=== PATIENT | male | born 1955 | race Caucasian/White ===

== ENCOUNTER 2019-04-30 15:39 | Inpatient (IN) | payer OTHER ==
[~2019-04-30] VITALS: Ht 177.8 cm; Wt 72.6 kg
[2019-04-30 15:40] VITALS: BP 106/49
[2019-04-30] MEDS ORDERED: WARF2TAB79 PO (16:09)
[2019-04-30] MEDS ORDERED: GABA100C PO (16:09)
[2019-04-30] MEDS ORDERED: METO25TE2 PO (16:09)
[2019-04-30] MEDS ORDERED: LACT1CAP63 PO (16:09)
[2019-04-30] MEDS ORDERED: VALS320T2 PO (16:09)
[2019-04-30] MEDS ORDERED: DOCU-299 PO (16:09)
[2019-04-30] MEDS ORDERED: ACET-2619 PO (16:09)
[2019-04-30] MEDS ORDERED: AMIO100T3 PO (16:09)
[2019-04-30] MEDS ORDERED: MIRT15TA PO (16:09)
[2019-04-30] MEDS ORDERED: PRED5TAB7 PO (16:09)
[2019-04-30] MEDS ORDERED: ALPR0.5T2 PO (16:09)
[2019-04-30] MEDS ORDERED: OLAN2.5T1 PO (16:09)
--- NOTE | 2019-04-30 16:30 | NUR ---
63 y/o m biba c/o cold-like symptoms x10 days. Pt has productive cough, with yellow, green, pink-tinged sputum. Pt denies pain. Pain level 0/10. Pt c/o chest discomfort upon inhalation. Pt A&O x4. Respirations are even and unlabored. Pt has colostomy bag in place. Pt has left sided weakness from a stroke in September 2018. Waiting for ERMD to evaluate pt. Allergies: nka Med hx: LA, Stroke, Diverticulitis, 4 stents, open heart surgery, aortic dissection
--- NOTE | 2019-04-30 17:00 | NUR ---
Spoke to of pt. 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
--- NOTE | 2019-04-30 17:25 | NUR ---
XRAY AT PT BEDSIDE
[2019-04-30 17:50] LABS: BASOPHILS % (AUTO) 0.4 % (0.0-2.0); EOSINOPHILS # (AUTO) 0.1 K/uL (0-0.4); HEMATOCRIT 39.1 % (36-52); HEMOGLOBIN 12.8 g/dL (12.0-18.0); LYMPHOCYTES # (AUTO) 0.7 K/uL (2.0-11.5); LYMPHOCYTES % (AUTO) 6.6 % (20.5-51.1); MEAN CORPUSCULAR HEMOGLOBIN 31 pg (27-31); MEAN CORPUSCULAR HGB CONC 33 g/dL (33-37); MONOCYTES # (AUTO) 0.6 K/uL (0.8-1.0); NEUTROPHILS # (AUTO) 8.6 K/uL (1.8-7.7); PLATELET COUNT (AUTO) 221 K/uL (140-450); RED BLOOD CELL COUNT(AUTO) 4.16 MIL/uL (4.20-6.10); RED CELL DISTRIBUTION WIDTH 15.2 % (11.6-13.7); WHITE BLOOD COUNT (AUTO) 10.1 K/uL (4.8-10.8)
--- NOTE | 2019-04-30 17:51 | NUR ---
Urinal provided at bedside
--- NOTE | 2019-04-30 18:29 | NUR ---
Contact Information: Alia Kyle ()
[2019-04-30 18:30] LABS: ALBUMIN 3.6 g/dL (3.4-5.0); ANION GAP 14.3 (8-16); CREATININE 2.2 mg/dL (0.7-1.3); POTASSIUM 4.3 mmol/L (3.5-5.1); TOTAL BILIRUBIN 0.4 mg/dL (0.0-1.0)
--- NOTE | 2019-04-30 18:52 | NUR ---
Pt requested to sit in a chair. Assisted pt to pivot to chair at bedside.
[2019-04-30] MEDS ORDERED: HYDROcodone/APAP 7.5/325 MG 1 TAB PO PRN (19:10)
[2019-04-30] MEDS ORDERED: ONDANSETRON 4 MG/2 ML VIAL IVP PRN (19:10)
[2019-04-30] MEDS ORDERED: ACETAMINOPHEN 325 MG TAB PO PRN (19:10)
--- NOTE | 2019-04-30 19:12 | NUR ---
Transfer of care and report given to AVA Barba
--- NOTE | 2019-04-30 19:13 | NUR ---
REPORT RECEIVED FROM AVA SAINI. TRANSFER OF CARE AT THIS TIME.
--- NOTE | 2019-04-30 19:15 | NUR ---
PT SITTING IN CHAIR NEAR BED. AWAKE, A/O X 4. TALKATIVE. NO COMPLAINTS AT THIS TIME.
--- NOTE | 2019-04-30 19:55 | NUR ---
Patient will be admitted to care of Dr Savage. Admited to TELE. Will go to room 107A. Belongings list completed. Report to AVA Zhao.
--- NOTE | 2019-04-30 19:55 | NUR ---
RECEIVED BEDSIDE REPORT FROM ED RN FOR PT'S CONT. OF CARE. PT IS AAOX4, ON SOFTWARE ENGINEER WEB APPLICATIONS, ON ROOM AIR, AMBULATES WITH ASSIST, ACTIVITY WITH ASSIST, HAS LEFT SIDED UPPER AND LOWER EXT WEAKNESS, HAS RIGHT AC 20G SALINE LOCK, HAS LEFT SIDE COLOSTOMY BAG, DENIES ANY PAIN AT THIS TIME. PT REQUESTED AND PROVIDED SNACK. EXPLAINED TO PT THE TAX STAFF ACCOUNTANT ROUTINE, PT VERBALIZED UNDERSTANDING. SAFETY MEASURES IN PLACE, AND CALL LIGHT IS WITHIN REACH. WILL MONITOR PT THROUGHOUT SHIFT.
[2019-04-30 20:16] LABS: PROTHROMBIN TIME 10.3 secs (10.8-13.4)
[2019-04-30 20:55] LABS: MAGNESIUM 2.2 mg/dL (1.8-2.4); PHOSPHORUS 4.3 mg/dL (2.5-4.9); THYROID STIMULATING HORMONE 1.08 uIU/mL (0.34-3.74)
[2019-04-30] MEDS: GABAPENTIN 100 MG CAP PO SCH (22:42)
[2019-04-30] MEDS: AMIODARONE 200 MG TAB PO SCH (22:42)
[2019-04-30] MEDS: DOCUSATE SODIUM 100 MG GELCAP PO SCH (22:42)
[2019-04-30] MEDS: OLANZapine 5 MG TAB PO SCH (22:42)
--- NOTE | 2019-04-30 22:42 | NUR ---
ADMINISTERED SCHEDULED MEDICATIONS ORDERED. PT TOLERATED THEM WELL. PT TEACHING GIVEN REGARDING MEDICATIONS AND SE, PT VERBALIZED FAMILIAR WITH MEDS SINCE THEY'RE HOME MEDS. INFORMED PT URINE SAMPLE NEEDED. PT UNDERSTOOD, STATED MIGHT NOT HAVE URINE UNTIL NEXT MORNING. WILL CONT. TO MONITOR PT.
[2019-04-30] MEDS: MIRTAZAPINE 15 MG TAB PO SCH (22:43)
[2019-04-30] MEDS: NACL 0.9% 1,000 ML IV SCH (22:44)
[2019-04-30] MEDS: ALPRAZolam 0.5 MG TAB PO SCH (22:45)
[2019-04-30] MEDS ORDERED: PIPERACILLIN/TAZOBACTAM 2.25 GM VIAL IV ONE (23:13)
[2019-04-30] MEDS ORDERED: CRUSHER, PILL MC ONE (23:13)
[2019-04-30] MEDS: PIPERACILLIN/TAZOBACTAM 2.25 GM in DEXTROSE 5% 50 ML IV SCH (23:33)
--- NOTE | 2019-04-30 23:33 | NUR ---
ADMINISTERED SCHEDULED IV ABX ORDERED. VS CHECKED AND CHARTED. PT DENIES ANY PAIN. WILL CONT TO MONITOR.
[2019-05-01] VITALS: BP 115/55
--- NOTE | 2019-05-01 02:00 | NUR ---
PT LYING DOWN ASLEEP WITH NO SIGNS OF DISTRESS. WILL CONT TO MONITOR PT.
[2019-05-01 04:00] VITALS: BP 106/48
--- NOTE | 2019-05-01 04:15 | NUR ---
PT LYING DOWN ASLEEP WITH NO SIGNS OF DISTRESS. WILL CONTINUE TO MONITOR PT.
[2019-05-01] MEDS ORDERED: PIPERACILLIN/TAZOBACTAM 2.25 GM VIAL IV ONE (05:06)
[2019-05-01] MEDS: PIPERACILLIN/TAZOBACTAM 2.25 GM in DEXTROSE 5% 50 ML IV SCH ×3 (05:13→17:56)
--- NOTE | 2019-05-01 05:19 | NUR ---
ADMINISTERED SCHEDULED IV ABX ORDERED. VS CHECKED AND CHARTED. PT DENIES ANY PAIN AT THIS TIME.
--- NOTE | 2019-05-01 06:47 | NUR ---
PT LYING DOWN ASLEEP, WITH NO SIGNS OF DISTRESS. WILL ENDORSE PT TO AM SHIFT RN FOR PT'S CONTINUITY OF CARE.
[2019-05-01 06:54] LABS: BASOPHILS # (AUTO) 0.1 K/uL (0.00-0.22); BASOPHILS % (AUTO) 0.8 % (0.0-2.0); EOSINOPHILS # (AUTO) 0.2 K/uL (0-0.4); EOSINOPHILS % (AUTO) 2.8 % (0.0-4.0); HEMATOCRIT 33.4 % (36-52); LYMPHOCYTES # (AUTO) 0.8 K/uL (2.0-11.5); LYMPHOCYTES % (AUTO) 9.6 % (20.5-51.1); MEAN CORPUSCULAR HEMOGLOBIN 31 pg (27-31); MEAN CORPUSCULAR HGB CONC 33 g/dL (33-37); MEAN CORPUSCULAR VOLUME 93.7 fL (80-94); MONOCYTES # (AUTO) 0.7 K/uL (0.8-1.0); MONOCYTES % (AUTO) 8.3 % (1.7-9.3); NEUTROPHILS # (AUTO) 6.7 K/uL (1.8-7.7); NEUTROPHILS % (AUTO) 78.5 % (42.2-75.2); PLATELET COUNT (AUTO) 184 K/uL (140-450); RED BLOOD CELL COUNT(AUTO) 3.57 MIL/uL (4.20-6.10); RED CELL DISTRIBUTION WIDTH 14.7 % (11.6-13.7); WHITE BLOOD COUNT (AUTO) 8.5 K/uL (4.8-10.8)
--- NOTE | 2019-05-01 07:15 | NUR ---
RECEIVED PATIENT FROM BROADCAST FIELD SUPERVISOR NURSE. PATIENT IS SLEEPING AT THIS TIME. NO SIGNS OF DISTRESS NOTED. VISIBLE CHEST RISE NOTED. RESPIRATIONS EVEN AND UNLABORED, ROOM AIR. BREATH SOUNDS CLEAR. ON TELE MONITORING. SKIN INTACT, WARM AND DRY. IV ON RIGHT AC GAUGE 20 RUNNING NS AT 50 ML/HR. PATIENT HAS COLOSTOMY IN PLACE. SMALL AMOUNT OF LIQUID STOOL PRESENT. BED IN LOW POSITION. CALL LIGHT IS WITHIN REACH. WILL CONTINUE TO MONITOR
[2019-05-01 07:23] LABS: ANION GAP 13.3 (8-16); CARBON DIOXIDE 26.4 mmol/L (21-32); CREATININE 2.1 mg/dL (0.7-1.3); POTASSIUM 3.7 mmol/L (3.5-5.1)
[2019-05-01 07:31] LABS: CHOL/HDL RATIO 5.5 (1-4.5); PHOSPHORUS 4.3 mg/dL (2.5-4.9)
[2019-05-01 08:00] VITALS: BP 115/64
--- NOTE | 2019-05-01 08:39 | NUR ---
PATIENT HAS BEEN SCREENED AND CATEGORIZED MODERATE NUTRITION RISK. PATIENT WILL BE SEEN WITHIN 3-5 DAYS OF ADMISSION. 05/03/19 05/05/[address]
[2019-05-01] MEDS: ALBUTEROL SULFATE/IPRATROPIU 3 ML SOL IH PRN ×3 (08:41→19:10)
[2019-05-01] MEDS: ACETYLCYSTEINE 10% (100 MG/ML) 100 MG/ML VIAL INH SCH ×3 (08:42→19:10)
[2019-05-01] MEDS ORDERED: WARFARIN SODIUM 2 MG PO SCH (09:00)
[2019-05-01] MEDS: predniSONE 5 MG TAB PO SCH (09:00)
[2019-05-01] MEDS: DOCUSATE SODIUM 100 MG GELCAP PO SCH ×2 (09:08→22:10)
[2019-05-01] MEDS: AMIODARONE 200 MG TAB PO SCH ×2 (09:08→22:10)
[2019-05-01] MEDS: FAMOTIDINE 20 MG TAB PO SCH (09:09)
[2019-05-01] MEDS: METOPROLOL SUCCINATE 50 MG TABER PO SCH (09:09)
[2019-05-01] MEDS: GABAPENTIN 100 MG CAP PO SCH ×2 (09:09→22:10)
[2019-05-01] MEDS: VALSARTAN 80 MG TAB PO SCH (09:09)
--- NOTE | 2019-05-01 09:09 | NUR ---
GIVEN MORNING MEDICATIONS PO. GIVEN HEPARIN IN THE RIGHT ARM. PLATELET IS 184. PATIENT VERBALIZED UNDERSTANDING WHEN I EXPLAINED MEDICATION TO PATIENT. CHANGED PATIENT'S TELE LEADS. BED IN LOW POSITION. CALL LIGHT IS WITHIN REACH. WILL CONTINUE TO MONITOR.
--- NOTE | 2019-05-01 09:28 | NUR ---
PATIENT IS GETTING BREATHING TREATMENT AT THIS TIME.
--- NOTE | 2019-05-01 11:07 | NUR ---
PATIENT IS SLEEPING AT THIS TIME BUT AROUSABLE TO NAME. PATIENT DENIES ANY PAIN. RESPIRATIONS EVEN AND UNLABORED, ROOM AIR. WILL CONTINUE TO MONITOR. BED IN LOW POSITION. CALL LIGHT IS WITHIN REACH.
--- NOTE | 2019-05-01 11:40 | NUR ---
DISCHARGE PLANNIN63 YEAR OLD MALE PATIENT FROM [facility], WHO CAME IN DUE TO COUGH. PAST MEDICAL HISTORY OF COPD, AORTIC DISSECTION, HTN, CVA AND KS. INITIAL DIAGNOSIS OF BRONCHITIS. CURRENT LABS INCLUDE WBC 8.5, H/H 11.0/33.4, BUN/CREA 31/2.1, TROP 0.017. MRSA NARES AND BLOOD CULTURE PENDING. CHEST X RAY ON ADMISSION NORMAL. ON COUMADIN, PREDNISONE. ON ZOSYN IV. PSYCHE CONSULT WITH DR. GÓMEZ FOR PSYCHOSIS AND DEMENTIA. DC PLAN PENDING PATIENT'S RESPONSE TO TREATMENT. Addendum: 05/03/19 at 1206 by Buffy Cristina CM RECEIVED AN ORDER FOR SNF PLACEMENT FOR PT. MET WITH THE PATIENT AT THE BEDSIDE TO DISCUSS DC PLANNING AND IN AGREEMENT. PROVIDED HIM WITH IMM LETTER, CHOICE OF VENDOR FORM WITH THE LIST OF SNF'S. HE STATED HIS IS ON HER WAY HERE. PRIMARY RN SOPHIE MADE AWARE. Addendum: 05/03/19 at 1208 by Buffy Cristina CM RECEIVED THE LIST OF FACILITIES THAT THE PATIENT AND HIS CHOSE NAMELY [facility], [facility] AND [facility]. REFERRAL SENT TO 3 FACILITIES. CM WILL FOLLOW UP. Addendum: 05/03/19 at 1439 by Buffy Cristina PER [facility], THEY ARE ABLE TO ACCEPT THE PATIENT AND WILL GO TO ROOM 224B UNDER DR. AYALA. HE ALSO STATED THEY ARE ABLE TO SET UP TRANSPORT AND WILL GIVE ME A CALL BACK FOR ETA. PRIMARY RN AND THE PATIENT MADE AWARE. Addendum: 05/03/19 at 1442 by Buffy Cristina PER [facility], MANAGER OF ENGINEERING WILL BE AT 1500 BY [facility]. PRIMARY AVA BARRIOS AND DR. MEDRANO MADE AWARE. CONTACTED PATIENT'S VENU PEREZ AT [phone], NO ANSWER. LEFT MESSAGE REGARDING THE ROOM NUMBER AT [facility] AND THE MANAGER OF ENGINEERING TIME.
[2019-05-01 12:00] VITALS: BP 113/72
--- NOTE | 2019-05-01 13:20 | NUR ---
AT BEDSIDE. PATIENT DENIES ANY PAIN. WILL CONTINUE TO MONITOR
--- NOTE | 2019-05-01 13:27 | NUR ---
Forepart Rounder Note: Basic Screen: Yes High Risk DC Screen [place]: ISSAC KYLE [place] Relationship: Pre-Admission Living Arrangements: SNF Prior ADL Needs Assistance Current Home Health Name/Tel: N/A Current DME/02 Name/Tel: [employer] Current Hospice Name/Tel: N/A Current Dialysis Name/Tel: N/A Healthcare Decision Maker: Patient Advance Directive No Physician Orders for Life Sustaining Treatment Form No Patient/Family Have Educational Needs No Information Taught: Advance Directive Person Taught: Patient Teaching Tools: Verbal Factors Affecting Learning: None Participation Level: Refused Evaluation: Verbalizes Understanding Needs Additional Education: No Discipline: Case Mgt/Social Svcs Tentative Discharge Plan/Destination: No Needs Identified Will require assistance post discharge: No Referred to Camera Storage Clerk: No Tentative Discharge Plan Summary: Patient is a 63-year-old male admitted for bronchitis. Patient has PMHX of COPD, aortic dissection, HTN, CVA, and ND. Patient was admitted from [facility]. SW contacted Nikolas from [facility] to verify demographics of patient. Per Nikolas, patient is a [place] [facility] patient is and currently on a bed hold. Patient has no advanced directive on file and patient's healthcare decision maker is Issac Kyle [phone]. Nikolas stated that patient needs assistance with ambulating and transferring from wheelchair to bed. Patient's tentative discharge plan is to return home. No further needs identified. Signature: ANDREINA Flores Date: May 01, 2019 Time: 13:25
[2019-05-01] MEDS: NACL 0.9% 1,000 ML IV SCH (15:28)
[2019-05-01 16:00] VITALS: BP 104/96
[2019-05-01] MEDS ORDERED: WARFARIN 1 MG TAB PO SCH (17:00)
--- NOTE | 2019-05-01 17:09 | NUR ---
GIVEN WARFARIN 2TABS PO. EXPLAINED TO PATIENT INDICATIONS AND SIDE EFFECTS. INR 1.02. PATIENT VERBALIZED UNDERSTANDING. WILL CONTINUE TO MONITOR
--- NOTE | 2019-05-01 17:59 | NUR ---
GIVEN ZOSYN VIA IVPB. EXPLAINED TO PATIENT INDICATION. PATIENT VERBALIZED UNDERSTANDING. BED IN LOW POSITION. CALL LIGHT IS WITHIN REACH. WILL CONTINUE TO MONITOR
--- NOTE | 2019-05-01 18:28 | NUR ---
PATIENT IS SLEEPING AT THIS TIME. NO SIGNS OF DISTRESS NOTED. VISIBLE CHEST RISE NOTED. BED IN LOW POSITION. CALL LIGHT IS WITHIN REACH.
--- NOTE | 2019-05-01 19:15 | NUR ---
ENDORSED PATIENT TO CLAIM TAKER NURSE. PATIENT IS IN STABLE CONDITION
--- NOTE | 2019-05-01 19:30 | NUR ---
RECEIVED BEDSIDE REPORT FROM AM SHIFT RN FOR PT'S CONTINUITY OF CARE. PT IS AAOX4, CURRENTLY RECEIVING BREATHING TREATMENT, DENIES ANY PAIN, ON WORKFORCE MANAGEMENT COORDINATOR, HAS RIGHT AC 20G WITH NS AT 60ML/HR. PT AWARE AND FAMILIAR WITH RN ACUTE CARE ROUTINE. PT'S NEEDS MET AT THIS TIME. SAFETY MEASURES IN PLACE, AND CALL LIGHT IS WITHIN REACH. WILL MONITOR PT THROUGHOUT SHIFT.
[2019-05-01 20:00] VITALS: BP 105/54
[2019-05-01] MEDS: ALPRAZolam 0.5 MG TAB PO SCH (22:09)
[2019-05-01] MEDS: OLANZapine 5 MG TAB PO SCH (22:10)
--- NOTE | 2019-05-01 22:10 | NUR ---
ADMINISTERED SCHEDULED MEDICATIONS ORDERED. PT DENIES ANY PAIN AT THIS TIME. PT REQUESTED AND PROVIDED PUDDING AND APPLE JUICE. COLOSTOMY INSPECTED, INTACT AND STILL WITH MINIMAL OUTPUT. WILL CONTINUE TO MONITOR PT.
[2019-05-01] MEDS: MIRTAZAPINE 15 MG TAB PO SCH (22:11)
[2019-05-02] VITALS: BP 116/59
[2019-05-02] MEDS: PIPERACILLIN/TAZOBACTAM 2.25 GM in DEXTROSE 5% 50 ML IV SCH ×5 (00:25→23:00)
--- NOTE | 2019-05-02 00:25 | NUR ---
VS CHECKED AND CHARTED. PT DENIES ANY PAIN OR DISTRESS AT THIS TIME. ADMINISTERED SCHEDULED IV ABX ORDERED. WILL CONTINUE TO MONITOR PT.
--- NOTE | 2019-05-02 02:30 | NUR ---
MADE ROUNDS. PT ASLEEP WITH NO SIGNS OF DISTRESS.
[2019-05-02 04:00] VITALS: BP 110/54
--- NOTE | 2019-05-02 04:00 | NUR ---
VS CHECKED AND CHARTED. PT'S NEEDS MET AT THIS TIME. PT USED URINAL, TOLERATED ACTIVITY WELL WITH MINIMAL ASSISTANCE.
--- NOTE | 2019-05-02 05:20 | NUR ---
ADMINISTERED SCHEDULED IV ABX ORDERED. PT ASLEEP WITH NO SIGNS OF DISTRESS. REMINDED PT TO KEEP ARM STRAIGHT FOR CONT IV FLOW. PT NODDED, AND FOLLOWED COMMAND.
--- NOTE | 2019-05-02 06:30 | NUR ---
PT LYING DOWN ASLEEP WITH NO SIGNS OF DISTRESS. WILL ENDORSE TO AM SHIFT RN FOR PT'S CONTINUITY OF CARE. STRAIGHTENED PT'S RIGHT ARM FOR IV, INSTRUCTED PT TO NOT BEND ARM DT OCCLUSION OF IV FLOW.
--- NOTE | 2019-05-02 07:20 | NUR ---
RECEIVE REPORT FROM NIGHT NURSE, PT IS SLEEP IN BED, PT IS STABLE, RAC 20G RUNNING NORMAL SALINE 50 ML, SAFETY MEASURES IN PLACE, CALL LIGHT WITHIN REACH.
[2019-05-02] MEDS: ACETYLCYSTEINE 10% (100 MG/ML) 100 MG/ML VIAL INH SCH ×3 (07:33→19:02)
[2019-05-02] MEDS: ALBUTEROL SULFATE/IPRATROPIU 3 ML SOL IH PRN ×3 (07:33→19:02)
[2019-05-02 08:00] VITALS: BP 132/67
[2019-05-02] MEDS: AMIODARONE 200 MG TAB PO SCH ×2 (09:19→20:32)
[2019-05-02] MEDS: DOCUSATE SODIUM 100 MG GELCAP PO SCH ×2 (09:19→20:33)
[2019-05-02] MEDS: GABAPENTIN 100 MG CAP PO SCH ×2 (09:19→20:32)
[2019-05-02] MEDS: FAMOTIDINE 20 MG TAB PO SCH (09:20)
[2019-05-02] MEDS: VALSARTAN 80 MG TAB PO SCH (09:21)
[2019-05-02] MEDS: METOPROLOL SUCCINATE 50 MG TABER PO SCH (09:21)
[2019-05-02] MEDS: predniSONE 5 MG TAB PO SCH (09:29)
[2019-05-02] MEDS: NACL 0.9% 1,000 ML IV SCH ×2 (11:09→22:20)
[2019-05-02 12:00] VITALS: BP 116/51
[2019-05-02 12:33] LABS: APPEARANCE,URINE CLEAR (CLEAR); BILIRUBIN,URINE NEGATIVE (NEGATIVE); BLOOD, URINE NEGATIVE (NEGATIVE); COLOR,URINE YELLOW (YELLOW); LEUKOCYTE ESTERASE ,URINE NEGATIVE (NEGATIVE); NITRITE, URINE NEGATIVE (NEGATIVE); PH,URINE 5.5 (5.0-9.0); UGLUCOSE NEGATIVE (NEGATIVE)
[2019-05-02 12:43] LABS: BARBITURATE, URINE NEG. ng/ml (NEG <=200); BENZODIAZEPINE, URINE POS. ng/mL (NEG <=200); CANNABINOID, URINE NEG. ng/mL (NEG <=50); COCAINE, URINE NEG. ng/mL (NEG <=300); OPIATE, URINE NEG. ng/mL (NEG <=2000); PHENCYCLIDINE SCREEN,URINE NEG. ng/mL (NEG <=25)
--- NOTE | 2019-05-02 12:59 | NUR ---
NIKKI VILLEGAS, EDUCATION GIVEN, PT VERBALIZE UNDERSTANDING, PT TOLERATED IT WELL, PT IS STABLE, CALL LIGHT WITHIN REACH.
--- NOTE | 2019-05-02 15:30 | NUR ---
PT RESTING IN BED, NO SIGNS OF DISTRESS NOTED, CALL LIGHT WITHIN REACH.
[2019-05-02 16:00] VITALS: BP 116/51
--- NOTE | 2019-05-02 16:07 | NUR ---
FOOD AND MEDICATION INTERACTION EDUCATION WAS PROVIDED TO PATIENT, AND PATIENT ACCEPTED. 05/02/[address]
[2019-05-02] MEDS ORDERED: WARFARIN 2.5 MG TAB PO SCH (17:00)
[2019-05-02] MEDS ORDERED: MUPIROCIN CA NASAL 2% 1GM TUBE NS SCH (17:25)
[2019-05-02] MEDS ORDERED: CHLORHEXADINE GLUC 2% CLOTH TP SCH (17:25)
--- NOTE | 2019-05-02 18:00 | NUR ---
GAVE ORDERED MEDICATION, EDUCATION GIVEN, HELP PT CALL HIS , PT IS STABLE, NO SIGNS OF DISTRESS NOTED, CALL LIGHT WITHIN REACH.
--- NOTE | 2019-05-02 19:10 | NUR ---
RECEIVED PT ON ROOM AIR WITH AN SP02 OF 96% AND CLEAR BREATH SOUNDS. NO RESPIRATORY DISTRESS NOTED AT THIS TIME; HR 64 AND RR 18. HHN TX GIVEN ORDERED WITH NO ADVERSE REACTION. WILL CONTINUE TO MONITOR PT.
--- NOTE | 2019-05-02 19:27 | NUR ---
RECEIVED PATIENT FROM NURSE WHITAKER IN STABLE CONDITION. MEDSUR PATIENT. RESPIRATIONS EVEN, UNLABORED. NO C/O PAIN. NO S/SX ACUTE DISTRESS. RESPIRATIONS EVEN, UNLABORED. SKIN WARM, DRY, INTACT. COLOSTOMY INTACT. IV SITE TO RIGHT AC 20G PATENT/INTACT. IV FLUIDS INFUSING WELL. ISOLATION PRECAUTIONS OBSERVED. CALL LIGHT WITHIN REACH. WILL CONTINUE TO MONITOR.
[2019-05-02] MEDS: OLANZapine 5 MG TAB PO SCH (20:32)
[2019-05-02] MEDS: MIRTAZAPINE 15 MG TAB PO SCH (20:32)
[2019-05-02] MEDS: ALPRAZolam 0.5 MG TAB PO SCH (20:32)
--- NOTE | 2019-05-02 21:03 | NUR ---
PATIENT IN STABLE CONDITION. DUE MEDS GIVEN. COLOSTOMY BAG CHANGED. NO S/SX ACUTE DISTRESS. CALL LIGHT WITHIN REACH. WILL CONTINUE TO MONITOR.
--- NOTE | 2019-05-02 23:38 | NUR ---
MADE ROUNDS. PATIENT ASLEEP. NO S/SX ACUTE DISTRESS. CALL LIGHT WITHIN REACH. WILL CONTINUE TO MONITOR.
[2019-05-03] VITALS: BP 111/69
--- NOTE | 2019-05-03 01:33 | NUR ---
MADE ROUNDS. PATIENT ASLEEP. RESPIRATIONS EVEN, UNLABORED. NO S/SX ACUTE DISTRESS. IV FLUIDS INFUSING WELL. ISOLATION PRECAUTIONS OBSERVED BY STAFF. CALL LIGHT WITHIN REACH. WILL CONTINUE TO MONITOR.
--- NOTE | 2019-05-03 03:35 | NUR ---
PATIENT IS ASLEEP. NO S/SX ACUTE DISTRESS, CONTINUES IN STABLE CONDITION. CALL LIGHT WITHIN REACH. IV FLUIDS INFUSING WELL. CALL LIGHT WITHIN REACH. WILL CONTINUE TO MONITOR.
[2019-05-03] MEDS: PIPERACILLIN/TAZOBACTAM 2.25 GM in DEXTROSE 5% 50 ML IV SCH ×2 (05:13→12:59)
--- NOTE | 2019-05-03 05:18 | NUR ---
PATIENT ASLEEP AND CONTINUES IN STABLE CONDITION. NO S/SX ACUTE DISTRESS. NO C/O PAIN. CALL LIGHT WITHIN REACH. WILL CONTINUE TO MONITOR.
[2019-05-03 07:01] LABS: ANION GAP 10.1 (8-16); CARBON DIOXIDE 28.3 mmol/L (21-32); CREATININE 1.9 mg/dL (0.7-1.3); POTASSIUM 4.4 mmol/L (3.5-5.1)
[2019-05-03 07:09] LABS: PROTHROMBIN TIME 10.3 secs (10.8-13.4)
--- NOTE | 2019-05-03 07:09 | NUR ---
ENDORSED PATIENT IN STABLE CONDITION TO AM SHIFT NURSE SOPHIE FOR CONTINUITY OF CARE.
--- NOTE | 2019-05-03 07:10 | NUR ---
RECEIVED REPORT FROM DISTILLERY LABORER NURSE KERVIN FOR CONTINUITY OF CARE. PT IN STABLE CONDITION. RESPIRATIONS EVEN AND UNLABORED, ROOM AIR. IV INTACT AND PATENT. SAFETY MEASURES IN PLACE. BED IN LOW POSITION. CALL LIGHT AT BEDSIDE. BED ALARM ON. WILL CONTINUE TO MONITOR.
[2019-05-03] MEDS: ALBUTEROL SULFATE/IPRATROPIU 3 ML SOL IH PRN (07:23)
[2019-05-03] MEDS: ACETYLCYSTEINE 10% (100 MG/ML) 100 MG/ML VIAL INH SCH ×2 (07:23→15:30)
[2019-05-03 07:28] LABS: BASOPHILS # (AUTO) 0.1 K/uL (0.00-0.22); EOSINOPHILS # (AUTO) 0.2 K/uL (0-0.4); EOSINOPHILS % (AUTO) 2.8 % (0.0-4.0); HEMATOCRIT 34.1 % (36-52); HEMOGLOBIN 11.1 g/dL (12.0-18.0); LYMPHOCYTES # (AUTO) 0.9 K/uL (2.0-11.5); LYMPHOCYTES % (AUTO) 10.9 % (20.5-51.1); MEAN CORPUSCULAR HEMOGLOBIN 31 pg (27-31); MEAN CORPUSCULAR HGB CONC 33 g/dL (33-37); MONOCYTES # (AUTO) 0.7 K/uL (0.8-1.0); NEUTROPHILS # (AUTO) 6.4 K/uL (1.8-7.7); NEUTROPHILS % (AUTO) 77.3 % (42.2-75.2); PLATELET COUNT (AUTO) 200 K/uL (140-450); RED BLOOD CELL COUNT(AUTO) 3.63 MIL/uL (4.20-6.10); WHITE BLOOD COUNT (AUTO) 8.2 K/uL (4.8-10.8)
[2019-05-03 08:00] VITALS: BP 101/56
--- NOTE | 2019-05-03 08:52 | NUR ---
spoke to anna marie from [facility] at [phone]. SHE SAID SHE WILL VERIFY INSURANCE AND CALL ME BACK. GAVE CALL BACK NUMBER. SHE IS AWARE PATIENT IS TO BE DISCHARGED TO SNF
[2019-05-03] MEDS: DOCUSATE SODIUM 100 MG GELCAP PO SCH (08:56)
[2019-05-03] MEDS: FAMOTIDINE 20 MG TAB PO SCH (08:56)
[2019-05-03] MEDS: GABAPENTIN 100 MG CAP PO SCH (08:56)
[2019-05-03] MEDS: AMIODARONE 200 MG TAB PO SCH (08:56)
--- NOTE | 2019-05-03 08:56 | NUR ---
GAVE ORDERED DUE MEDICATIONS AT THIS TIME. PT TOLERATED WELL. WILL CONTINUE TO MONITOR.
[2019-05-03] MEDS: VALSARTAN 80 MG TAB PO SCH (09:00)
[2019-05-03] MEDS: METOPROLOL SUCCINATE 50 MG TABER PO SCH (09:00)
[2019-05-03] MEDS: predniSONE 5 MG TAB PO SCH (09:28)
--- NOTE | 2019-05-03 10:33 | NUR ---
ASSISTED PT WITH SITTING UP FOR URINAL USE. EMPTIED 250ML.
--- NOTE | 2019-05-03 12:15 | NUR ---
PT LYING IN BED TALKING TO AT BEDSIDE. RESPIRATIONS EVEN AND UNLABORED. BED IN LOW POSITION. CALL LIGHT AT BEDSIDE. WILL CONTINUE TO MONITOR.
[2019-05-03] MEDS ORDERED: LACT-81 PO (13:48)
[2019-05-03] MEDS ORDERED: AMOX-999 PO (13:48)
--- NOTE | 2019-05-03 14:00 | NUR ---
ASSISTED WITH CHANGING PT TO PREPARE FOR DISCHARGE. PT TOLERATED WELL.
[2019-05-03] MEDS ORDERED: WARF2TAB79 PO (14:18)
--- NOTE | 2019-05-03 14:30 | NUR ---
GAVE REPORT TO [facility] FOR CONTINUITY OF CARE. ALL QUESTIONS ANSWERED AT THIS TIME. DYLON VERBALIZED UNDERSTANDING OF INSTRUCTIONS.
--- NOTE | 2019-05-03 14:45 | NUR ---
SPOKE WITH PT SPOUSE CARL TO INFORM HER PT WILL TRANSFER TO [facility]. CARL VERBALIZED UNDERSTANDING.
--- NOTE | 2019-05-03 15:35 | NUR ---
GAVE DISCHARGE INSTRUCTIONS TO PT. PT VERBALIZED UNDERSTANDING. REMOVED IV, LUMEN INTACT. REMOVED ID BAND. GAVE DISCHARGE INSTRUCTIONS TO TRANSPORT TEAM. TRANSPORT TEAM VERBALIZED UNDERSTANDING OF INSTRUCTIONS. PT GOING TO [facility] UNDER DR. AYALA. PT PLACED ON GURNEY IN STABLE CONDITION.
[2019-05-03] MEDS ORDERED: WARFARIN 5 MG TAB PO SCH (17:00)
== END 2019-05-03 15:35 | DRG 190 ==
LOC: MED 15:39 → MTU 19:15
PROVIDERS: ADMIT Family Medicine; ATTEND Family Medicine
DX: J44.0 Chronic obstructive pulmonary disease with (acute) lower respiratory infection (principal); N17.0 Acute kidney failure with tubular necrosis; I69.354 Hemiplegia and hemiparesis following cerebral infarction affecting left non-dominant side; J20.9 Acute bronchitis, unspecified; I48.91 Unspecified atrial fibrillation; I10 Essential (primary) hypertension; F03.90 Unspecified dementia, unspecified severity, without behavioral disturbance, psychotic disturbance, mood disturbance, and anxiety; K57.90 Diverticulosis of intestine, part unspecified, without perforation or abscess without bleeding; M54.5 Low back pain; G89.29 Other chronic pain; F29 Unspecified psychosis not due to a substance or known physiological condition; F41.9 Anxiety disorder, unspecified; F32.9 Major depressive disorder, single episode, unspecified; D64.9 Anemia, unspecified; I25.10 Atherosclerotic heart disease of native coronary artery without angina pectoris; Z95.1 Presence of aortocoronary bypass graft; I25.2 Old myocardial infarction; Z95.5 Presence of coronary angioplasty implant and graft
CPT/HCPCS: 36415; 71045; 80048; 80053; 80305; 81003; 83036; 83605; 83735; 83880; 84100; 84443; 84484; 85025; 85610; 85730; 87040; 87070; 87081; 87086; 87205; 93005; 94640; 99285; J1644; J2543; J7030; J7060; J7512; J7620; Q0092